=== PATIENT | male | born 1980 | race Two or more races ===

== ENCOUNTER 2016-11-10 23:05 | Emergency (ER) | payer OTHER ==
[~2016-11-10] VITALS: Ht 170.2 cm; Wt 93.0 kg
--- NOTE | 2016-11-10 23:07 | NUR ---
pt bib pd to er bed 11. here for medical clearance prior to booking. presents w/ l ankle pain, and rfa pain from a puncture wound s/p jumping a fence. pt denies head trauma. not sure if utd w/ tetanus shot. awaiting md nicole.
[2016-11-10] MEDS ORDERED: TDAP [DIPH/PERTUSSIS/TET] 0.5 ML VIAL IM STA (23:25)
--- NOTE | 2016-11-10 23:27 | NUR ---
[facility] at bedside for eval.
[2016-11-10] MEDS ORDERED: TDAP [DIPH/PERTUSSIS/TET] 0.5 ML VIAL IM ONE (23:30)
[2016-11-11] MEDS ORDERED: oxyCODONE/APAP (5/325 MG) 1 UDTAB TABLET ONE (00:18)
[2016-11-11] MEDS ORDERED: oxyCODONE/APAP (5/325 MG) 1 UDTAB TABLET PO ONE (00:30)
--- NOTE | 2016-11-11 00:30 | NUR ---
pt to radiology for lt foot ct scan via [facility].
--- NOTE | 2016-11-11 01:37 | NUR ---
report to charge nurse stephanie for [facility].
--- NOTE | 2016-11-11 02:23 | NUR ---
Patient discharged to [employer] custody for transport to residential in stable condition. Written and verbal after care instructions given. Patient verbalizes understanding of instruction. Crutches dispensed. Pt instructed on proper use of crutches. Patient able to demonstrate correct use of crutches. VSS, NAD noted on DC. Denies complaint on DC.
[2016-11-11 02:25] VITALS: BP 152/99
== END 2016-11-11 02:26 ==
LOC: ER 23:09
DX: S92.002A Unspecified fracture of left calcaneus, initial encounter for closed fracture (principal); S51.831A Puncture wound without foreign body of right forearm, initial encounter; M79.672 Pain in left foot; W22.8XXA Striking against or struck by other objects, initial encounter; Y93.02 Activity, running; Y92.89 Other specified places as the place of occurrence of the external cause; Y99.9 Unspecified external cause status
CPT/HCPCS: 29515; 72100; 73630; 73700; 90471; 90715; 99284; A4606; Z7610